=== PATIENT | male | born 1960 | race Caucasian/White ===

== ENCOUNTER 2025-02-25 05:56 | Observation (INO) | payer MEDICARE ==
[2025-02-21 10:41] LABS: IMMATURE GRANULOCYTE ABSOLUTE 0.09 K/uL (0-1); NUCLEATED RED BLOOD CELLS 0.0 % (0.0-0.19); PLATELET COUNT (AUTO) 333 K/uL (130-400); RED BLOOD CELL COUNT(AUTO) 3.96 MIL/uL (4.50-6.20); RED CELL DISTRIBUTION WIDTH 12.7 % (11.0-15.5); WHITE BLOOD COUNT (AUTO) 8.8 K/uL (4.8-10.8)
[2025-02-21 10:43] LABS: APPEARANCE,URINE CLEAR (CLEAR); GLUCOSE, URINE (UA) NEGATIVE (NEGATIVE); LEUKOCYTE ESTERASE ,URINE NEGATIVE Leu/uL (NEGATIVE); NITRATE,URINE NEGATIVE (NEGATIVE); OCCULT BLOOD,URINE NEGATIVE (NEGATIVE)
[2025-02-21 10:45] LABS: ADD UA MICROSCOPIC YES
[2025-02-21 10:46] LABS: CREATININE 0.9 mg/dL (0.5-1.3); GLOMERULAR FILTR. RATE CALC 95.0 mL/min (>90); GLUCOSE,RANDOM 102.0 mg/dL (70-105); SODIUM SERUM 140.0 mmol/L (136-145); UREA NITROGEN, BLOOD 21.0 mg/dL (7-18)
[2025-02-21 10:50] LABS: INR 0.99 (0.85-1.15)
[2025-02-21 11:13] VITALS: BP 143/77; PULSE 70; RESP 18; TEMP 97.9
--- NOTE | 2025-02-21 11:20 | NUR ---
REPORT CALLED DR DURAN/NINA AND REPORTED PT STATED HE PASSED A GALLSTONE ON MONDAY. PT HAD RT FLANK PAIN AND FEVER. STATES HE FEELS GOOD NOW. NINA WILL CALL ME BACK WITH ORDERS Addendum: 02/21/25 at 1139 by SONDRA PEOPLES RN RN OK TO PROCEED
--- NOTE | 2025-02-21 12:41 | EKG ---
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
[2025-02-25] VITALS (30 sets, daily range): BP systolic 114–145; BP diastolic 73–91; PULSE 67–108; RESP 12–20; TEMP 97.5–98.9; O2SAT 94
[~2025-02-25] VITALS: Ht 182.9 cm; Wt 114.8 kg
[~2025-02-25 05:56] MED LIST: GABA-534 PO; OLME-30 PO; SERT-439 PO; TRAZ-187 PO
[2025-02-25] MEDS: LACTATED RINGERS 1000ML 1,000 ML IV ONE (06:22)
[2025-02-25] MEDS: CLINDAMYCIN IVPB 900MG/50ML 50 ML IV ONE (06:22)
[2025-02-25] MEDS ORDERED: VANCOMYCIN 1G/250ML KIT 250 ML IV ONE (06:27)
[2025-02-25] MEDS: FAMOTIDINE 20MG VIAL IV ONE (06:55)
[2025-02-25] MEDS ORDERED: LIDOCAINE PF 100MG/5ML (2%) SYRINGE 5ML ONE (06:58)
[2025-02-25] MEDS ORDERED: MIDAZOLAM HCL 1 MG/ML 2ML VIAL ONE (06:58)
[2025-02-25] MEDS: CLINDAMYCIN 900MG/6ML INJ IVPB ONE (07:35)
[2025-02-25] MEDS: methylPREDNISolone aceTATE 40 MG/ML VIAL ONE (08:05)
[2025-02-25] MEDS: TRANEXAMIC ACID 1000MG/10ML ONE (08:05)
[2025-02-25] MEDS: THROMBIN-JMI 5000 UNIT/VIAL TP ONE (08:05)
[2025-02-25] MEDS ORDERED: GLYCOPYRROLATE 0.2 MG/ML 5 ML VIAL ONE (08:11)
[2025-02-25] MEDS ORDERED: NEOSTIGMINE METHYLSULFATE 1MG/ML IV ONE (08:11)
[2025-02-25] MEDS: BACITRACIN 28.4 GM OINT TP ONE (09:05)
[2025-02-25] MEDS ORDERED: MEPERIDINE-PF 75 MG/ML SYG IM PRN (11:30)
[2025-02-25] MEDS ORDERED: PHARMACY COMMUNICATION MISC SCH (11:30)
[2025-02-25] MEDS: 0.9%NACL 1000ML 1,000 ML IV SCH (12:06)
[2025-02-25] MEDS: GABAPENTIN 300 MG CAPSULE PO SCH (12:06)
[2025-02-25] MEDS: CLINDAMYCIN IVPB 900MG/50ML 50 ML IV SCH (12:08)
[2025-02-25] MEDS ORDERED: NON-FORMULARY MEDICATION 1 EACH (Gabapentin 400 MG) PO SCH (13:00)
--- NOTE | 2025-02-26 03:01 | OP ---
DATE OF PROCEDURE: 02/25/2025 INDICATIONS FOR PROCEDURE: The patient is a 64-year-old patient with a history of intractable back pain, evidence of neurogenic claudication, for which he was advised, agreed and consented freely. 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 POSTOPERATIVE DIAGNOSIS: Lumbar spondylosis with stenosis, neurogenic claudication, myeloradiculopathy from L2 to L3. PROCEDURE: Decompressive laminectomy with medial facetectomy and foraminotomy at L2-L3. SURGEON: Eduar Francis M.D. ANESTHESIA: General. CONDITION: The patient tolerated the procedure well. FINDINGS: There was evidence of marked facet arthropathy with stenosis more toward the right side than the left. PROCEDURE IN DETAIL: The patient was brought to the operating room and adequate general endotracheal anesthesia was achieved. IV antibiotics were given. Thereafter, the patient underwent placement of DVT garments and the needles for the EMG and SSEP, positioned prone with adequate padding to pressure areas. The back was extensively prepped and draped in the usual sterile fashion. A midline incision was done with a blade and bipolar electrocoagulation, continued dissection was done. I was able to expose the laminas of L2 to L3, which were verified with fluoroscopy. The retractor system was substituted and the GLP was secured. Again, the axon rongeur, drill, and multiple sizes of Kerrison rongeurs including the banana Kerrison were used to decompress the L2-L3 including the foramen on the right side where a disk osteophyte complex was noted, but more so marked facet arthropathy. I used a ball-ended Olivercrona to assess the decompression and thereafter, the wound was copiously irrigated with bacteriostatic solution and thereafter closed by anatomic layer of Vicryl 1, Vicryl 2, and osvaldo for the skin. Before that, / Hemovac was left in the wound area. The patient tolerated the procedure well. There were no complications. There were no family members available. TID: [id number] RECEIPT: [id number]
[2025-02-26 03:25] VITALS: BP 120/72; PULSE 84; RESP 21; TEMP 97.9
[2025-02-26 05:37] VITALS: O2SAT 93
--- NOTE | 2025-02-26 05:43 | NUR ---
[facility] REMOVAL OLD DRESSING REMOVED, AREA AROUND TUBE [AINTED WITH BETADINE/NS SOAKED GAUZE, SUTURE REMOVED ASEPTICALLY, HEMOVAC TUBE COMPLETELY OUT, HEMOSTASIS WIT FOLDED STERILE 4X4 ACHIEVED ,MEDIPORE TAPE, TOLERATED WELL BY PT Addendum: 02/26/25 at 0546 by LILIA DOBBINS RN RN Amended: Links added.
[2025-02-26 07:54] VITALS: BP 133/81; PULSE 76; RESP 18; TEMP 97.9
[2025-02-26 08:44] VITALS: O2SAT 95
[2025-02-26] MEDS: (Olmesartan/Hydrochlorothiazide (Olmesartan-Hctz 40-12.5 m PO SCH (09:00)
--- NOTE | 2025-02-26 09:41 | NUR ---
DCP: HOME Pt currently lives with his Faiza Engalnd [phone]. Pt does not have any DME, home health, or provider services. Pt does state that he has a CPAP machine that he does use at home. Pt does not report any insecurities with food, senior care, and/or utilities. PCP is Nuris Haro and uses [facility] in [place] for any RX needs. At DC pt would want to go home and can assist with transportation. Addendum: 02/26/25 at 0945 by JOEY MCCABE SS Amended: Links added.
[2025-02-26 11:53] VITALS: BP 135/77; PULSE 73; RESP 18; TEMP 98.7
[2025-02-26 15:19] VITALS: BP 161/88; PULSE 73; RESP 18; TEMP 97.9
--- NOTE | 2025-02-26 16:12 | NUR ---
DISCHARGE PIV DC'D PATIENT INFORMED OF FOLLOW UP APPOINTMENTS ALL QUESTIONS ANSWERED PRIOR TO DISCHARGE
--- NOTE | 2025-03-11 14:40 | HMCIMG ---
INTRAOPERATIVE FLUOROSCOPY INDICATION: Lumbar stenosis FINDINGS: 3 total saved images from intraoperative fluoroscopy are submitted. There is a metallic pointer at the level of L2-L3. Reported fluoroscopic time was 0.11 minute IMPRESSION: Details of the finding in the operative note. Please refer to operative note for more information.
== END 2025-02-26 16:35 | disposition home or self-care (01) ==
LOC: DAH 05:56 → DAHIP 05:57 → INTOOBSV 05:57 → DAH 05:57 → 3CH 11:00
PROVIDERS: ADMIT Neurological Surgery; ATTEND Neurological Surgery
DX: M48.062 Spinal stenosis, lumbar region with neurogenic claudication (principal); M47.16 Other spondylosis with myelopathy, lumbar region; M47.26 Other spondylosis with radiculopathy, lumbar region; M25.78 Osteophyte, vertebrae; F41.9 Anxiety disorder, unspecified; I10 Essential (primary) hypertension; R79.1 Abnormal coagulation profile; Z79.899 Other long term (current) drug therapy; Z98.890 Other specified postprocedural states
CPT/HCPCS: 80048; 85025; 85610; 85730; 86850 ×2; 86900 ×2; 86901 ×2; 81001; 36415 ×2; 93005; 63030; 96365; 96366; 96375; 72020; 97161; 97116; A4510; A4663; A4649 ×7; J7120; J3373 ×2; J3490 ×9; J3010 ×2; J1171; J1100 ×2; J0665; J2003; J2250; J2704; J2274; J2405; J2710; J1010; J2371; J3260; A6010; A4215; A4223 ×2; A4213; A4222; A4221; A4216; A4600; G0378